=== PATIENT | female | born 1985 | race Caucasian/White ===

== ENCOUNTER 2018-07-15 18:15 | Emergency (ER) | payer OTHER ==
[2018-07-15 18:42] VITALS: BP 113/66; PULSE 83; TEMP 98.3; BMI 24.7
--- NOTE | 2018-07-15 19:42 | PDOC ---
History of Present Illness - General History Source: Patient Exam Limitations: No Limitations - History of Present Illness Initial Comments: 07/15/18 19:58 <Raffi Wen - Last Filed: 07/15/18 21:01> - History of Present Illness Initial Comments: 07/15/18 21:03 The patient is a 33 year old female, with no significant past medical history, who presents to the ED complaining of a lump behind her left since yesterday. She reports that she noticed pain yesterday with some mild swelling that she palpated with her hands. She notes that she has been touching area and reports that it feels hot. She also reports a burning sensation related to her pain. 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 She denies taking anything for her symptoms. She reports having pain to this area on and off for years but has never sought medical care for it. Denies discharge from the ear or the lump. Denies headaches. The patient denies chest pain, shortness of breath, headache and dizziness. Denies fever, chills, nausea, vomiting, diarrhea or constipation. Allergies: None Past surgical history: None reported Social History: Cigarette use (5 daily). No tobacco or drug use reported <Cecy Marquez - Last Filed: 07/15/18 21:29> - General Chief Complaint: Abscess Boil Stated Complaint: KNOT ON HEAD Time Seen by Provider: 07/15/18 19:28 Past History <Raffi Wen - Last Filed: 07/15/18 21:01> - Past Medical History Anemia: No Asthma: No Cancer: No Cardiac Disorders: No CVA: No COPD: No Diabetes: No - Suicide/Smoking/Psychosocial Hx Smoking Status: Yes Smoking History: Never smoked Have you smoked in the past 12 months: Yes Number of Cigarettes Smoked Daily: 5 If you are a former smoker, when did you quit?: 2011 'Breaking Loose' booklet given: 04/27/16 Hx Alcohol Use: No Drug/Substance Use Hx: No Substance Use Type: None <Cecy Marquez - Last Filed: 07/15/18 21:29> - Past Medical History Allergies/Adverse Reactions: Allergies Allergy/AdvReac Type Severity Reaction Status Date / Time No Known Allergies Allergy Verified 07/15/18 18:37 Home Medications: Ambulatory Orders NK [No Known Home Medication] 07/15/18 Review of Systems - Review of Systems Able to Perform ROS?: Yes Comments:: 07/15/18 19:58 <Raffi Wen - Last Filed: 07/15/18 21:01> - Review of Systems Comments:: 07/15/18 21:05 GENERAL/CONSTITUTIONAL: No fever or chills. No weakness. HEAD, EYES, EARS, NOSE AND THROAT: (+) Left ear posterior lump. No change in vision. No ear discharge. No sore throat. GASTROINTESTINAL: No nausea, vomiting, diarrhea or constipation. GENITOURINARY: No dysuria, frequency, or change in urination. CARDIOVASCULAR: No chest pain or shortness of breath. RESPIRATORY: No cough, wheezing, or hemoptysis. MUSCULOSKELETAL: No joint or muscle swelling or pain. No neck or back pain. SKIN: No rash NEUROLOGIC: No headache, vertigo, loss of consciousness, or change in strength/ sensation. ENDOCRINE: No increased thirst. No abnormal weight change. HEMATOLOGIC/LYMPHATIC: No anemia, easy bleeding, or history of blood clots. ALLERGIC/IMMUNOLOGIC: No hives or skin allergy. <Cecy Marquez - Last Filed: 07/15/18 21:29> *Physical Exam - Vital Signs Last Vital Signs Temp Pulse Resp BP Pulse Ox 98.3 F 83 16 113/66 100 07/15/18 18:30 07/15/18 18:30 07/15/18 18:30 07/15/18 18:30 07/15/18 18:30 - Physical Exam Comments: 07/15/18 19:58 <Raffi Wen - Last Filed: 07/15/18 21:01> - Vital Signs Last Vital Signs Temp Pulse Resp BP Pulse Ox 98.3 F 83 16 113/66 100 07/15/18 18:30 07/15/18 18:30 07/15/18 18:30 07/15/18 18:30 07/15/18 18:30 - Physical Exam Comments: 07/15/18 21:20 GENERAL: Awake, alert, and fully oriented, in no acute distress. Non toxic. HEAD: No signs of trauma EYES: PERRLA, EOMI, sclera anicteric, conjunctiva clear ENT: Auricles normal inspection, no erythema in canal, normal light reflex, no effusions, normal anatomy. No palpable or visible lesion posterior to L ear. + mild ttp along posterior L auricule but no fluctuance. Hearing grossly normal, nares patent, oropharynx clear without exudates. Moist mucosa NECK: Normal ROM, supple, no lymphadenopathy, JVD, or masses LUNGS: Breath sounds equal, clear to auscultation bilaterally. No wheezes, and no crackles HEART: Regular rate and rhythm, normal S1 and S2, no murmurs, rubs or gallops ABDOMEN: Soft, nontender, normoactive bowel sounds. No guarding, no rebound. No masses EXTREMITIES: Normal range of motion, no edema. No tenderness. NEUROLOGICAL: Normal speech, cranial nerves intact, equal strength and sensation b/l SKIN: Warm, Dry, normal turgor, no rashes or lesions noted. <Cecy Marquez - Last Filed: 07/15/18 21:29> Moderate Sedation - Procedure Monitoring Vital Signs: Procedure Monitoring Vital Signs Temperature 98.3 F 07/15/18 18:30 Pulse Rate 83 07/15/18 18:30 Respiratory Rate 16 07/15/18 18:30 Blood Pressure 113/66 07/15/18 18:30 O2 Sat by Pulse Oximetry (%) 100 07/15/18 18:30 <Raffi Wen - Last Filed: 07/15/18 21:01> - Procedure Monitoring Vital Signs: Procedure Monitoring Vital Signs Temperature 98.3 F 07/15/18 18:30 Pulse Rate 83 07/15/18 18:30 Respiratory Rate 16 07/15/18 18:30 Blood Pressure 113/66 07/15/18 18:30 O2 Sat by Pulse Oximetry (%) 100 07/15/18 18:30 <Cecy Marquez - Last Filed: 07/15/18 21:29> Medical Decision Making - Medical Decision Making 07/15/18 21:26 33yo F presents to the ED with acute on chronic pain to the L posterior auricle. No evidence of infection, mastoiditis, lymph node, collection, mass, rash on exam. Pt has had symptms for many years on and off, has not seen a specialist. Pain well controlled at this time. In absence of infection, or other acute pathology on exam, will hold off on imaging or further w/u in the ED. Will refer pt to ENT specialist which pt plans to do. I discussed the physical exam findings, ancillary test results and final diagnoses with the patient. I answered all of the patient's questions. The patient was satisfied with the care received and felt comfortable with the discharge plan and treatment plan. The patient will call their primary care physician within 24 hours to arrange follow-up and will return to the Emergency Department with any new, persistent or worsening symptoms. <Cecy Marquez - Last Filed: 07/15/18 21:29> *DC/Admit/Observation/Transfer - Attestations Scribe Attestion: 07/15/18 19:59 Documentation prepared by Raffi Wen, acting as medical data analyst for Cecy Marquez MD <Raffi Wen - Last Filed: 07/15/18 21:01> - Discharge Dispostion Decision to Admit order: No - Attestations Physician Attestion: 07/15/18 19:42 I, Dr. Cecy Marquez MD, attest that this document has been prepared under my direction and personally reviewed by me in its entirety. I further attest, that it accurately reflects all work, treatment, procedures and medical decision -making performed by me. <Cecy Marquez - Last Filed: 07/15/18 21:29> Diagnosis at time of Disposition: Posterior auricular pain of left ear - Discharge Dispostion Disposition: HOME Condition at time of disposition: Good - Referrals Referrals: Lino Quan MD [Staff Physician] - - Patient Instructions Additional Instructions: Take ibuprofen 600mg every 6 hours as needed for pain. Follow up with Dr. Quan (ear, nose and throat specialist) as needed for your pain Return to the emergency department if you have any new, worsening, or concerning symptoms
== END 2018-07-15 19:45 | disposition home or self-care (01) ==
LOC: FER 18:15
DX: H92.02 Otalgia, left ear (principal)
CPT/HCPCS: 99281-25

== ENCOUNTER 2022-03-18 03:05 | Emergency (ER) | payer OTHER ==
[2022-03-18 03:16] VITALS: BP 114/81; PULSE 88; RESP 18; TEMP 98.4; BMI 21.4
== END 2022-03-18 03:46 | disposition home or self-care (01) ==
LOC: FER 03:05
DX: B34.9 Viral infection, unspecified (principal); J02.9 Acute pharyngitis, unspecified
CPT/HCPCS: 0241U-QW; 87651; 99283-25

== ENCOUNTER 2023-06-05 17:33 | Emergency (ER) | payer OTHER ==
[2023-06-05 18:39] VITALS: RESP 18; TEMP 98.1; BMI 23.9
[2023-06-05 20:40] LABS: URINE APPEARANCE CLEAR; URINE BILIRUBIN NEGATIVE (NEGATIVE); URINE COLOR YELLOW; URINE GLUCOSE (UA) NEGATIVE (NEGATIVE); URINE KETONE 2+ (NEGATIVE); URINE LEUK ESTERASE NEGATIVE (NEGATIVE); URINE NITRITE NEGATIVE (NEGATIVE); URINE PROTEIN NEGATIVE (NEGATIVE); URINE UROBILINOGEN 0.2 mg/dL (0.2-1.0)
[2023-06-05] MEDS ORDERED: IBUPROFEN 600 MG TABLET (FP) PO ONE ×2 (20:48→21:11)
[2023-06-05] MEDS ORDERED: ACETAMINOPHEN 500 MG TABLET (FP) PO ONE (21:50)
[2023-06-05] MEDS ORDERED: ACETAMINOPHEN 325 MG TABLET (FP) ONE (22:20)
[2023-06-06 01:08] VITALS: BP 116/76; PULSE 88
== END 2023-06-06 01:10 | disposition home or self-care (01) ==
LOC: JER 17:33
DX: R10.2 Pelvic and perineal pain (principal); R10.30 Lower abdominal pain, unspecified; N83.202 Unspecified ovarian cyst, left side
CPT/HCPCS: 76830-TC; 81003; 84703; 87086; 99284-25